=== PATIENT | female | born 1975 | race Caucasian/White ===

== ENCOUNTER 2021-02-04 12:43 | Emergency (ER) | payer MEDICAID, MEDICARE ==
--- NOTE | 2021-02-04 14:03 | EDM.PDOC ---
ED HPI GENERAL MEDICAL PROBLEM - General Chief Complaint: ENT Problem Stated Complaint: [id number] COUGH AND TEMP CONGESTION Time Seen by Provider: 02/04/21 13:52 Source of Information: Reports: Patient, RN, RN Notes Reviewed, Other ([facility] home staff) History Limitations: Reports: Language Barrier (Nonverbal) - History of Present Illness INITIAL COMMENTS - FREE TEXT/NARRATIVE: Denita is a 45 y/o female with a history of mental retardation who presents to the ED via personal vehicle with [facility] home staff member for complaints of fever, cough, and decreased appetite. The [facility] staff member reports the patient had a fever of 103.5 this morning was appropriately reduced with Tylenol 1gm. Additionally, they have noted congestion and reduction in fluid intake since this morning. As the patient is nonverbal she does not attest to pain, however no painful response is noted upon palpation of the abdomen, chest, or extremities. - Related Data Allergies Allergy/AdvReac Type Severity Reaction Status Date / Time povidone-iodine Allergy Hives Verified 08/26/17 12:00 [From Betadine] soap [From Betadine] Allergy Hives Verified 08/26/17 12:00 Sulfa (Sulfonamide Allergy Hives Verified 08/26/17 12:00 Antibiotics) Home Meds: Home Meds Betamethasone Dipropionate [Diprosone 0.05% Crm] 1 applic TOP BID PRN 08/26/17 [History] Celecoxib 200 mg PO BID 08/26/17 [History] Cholecalciferol (Vitamin D3) [Vitamin D3] 2,000 unit PO DAILY 08/26/17 [History] Docusate Sodium [DOK] 200 mg PO BID 08/26/17 [History] Erythromycin Base/Ethanol [Erythromycin 2% Gel] 1 applic TOP BEDTIME PRN 08/26/17 [History] Famotidine 20 mg PO BID 08/26/17 [History] Hydrocortisone [Proctosol-HC] 1 applic TOP ASDIRECTED PRN 08/26/17 [History] Vitamin E 400 unit PO DAILY 08/26/17 [History] cefUROXime axetiL [Cefuroxime] 250 mg PO DAILY 08/26/17 [History] lamoTRIgine 200 mg PO BID 08/26/17 [History] tiZANidine [Zanaflex] 1 mg PO BEDTIME 08/26/17 [History] tiZANidine [Zanaflex] 1 mg PO Q6H PRN 08/26/17 [History] Past Medical History HEENT History: Reports: Hard of Hearing, Other (See Below) Other HEENT History: tympanoplasty [place] ears, canaloplasty right ear Cardiovascular History: Reports: None Respiratory History: Reports: None Gastrointestinal History: Reports: Celiac Disease, Chronic Constipation, Other (See Below) Other Gastrointestinal History: lactose intolerance Genitourinary History: Reports: None PSYCHOLOGY INSTRUCTOR History: Reports: None Musculoskeletal History: Reports: None Neurological History: Reports: Cerebral Palsy Psychiatric History: Reports: Developmental Delay, Other (See Below) Other Psychiatric History: profound intellectual disability Endocrine/Metabolic History: Reports: None Hematologic History: Reports: None Immunologic History: Reports: Other (See Below) 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, increased immunoglobulin M Oncologic (Cancer) History: Reports: None Dermatologic History: Reports: None - Infectious Disease History Infectious Disease History: Reports: None - Past Surgical History Head Surgeries/Procedures: Reports: None Social & Family History - Family History Family Medical History: Unobtainable - Tobacco Use Tobacco Use Status *Q: Never Tobacco User Second Hand Smoke Exposure: No - Caffeine Use Caffeine Use: Reports: None - Recreational Drug Use Recreational Drug Use: No ED ROS ENT - Review of Systems Review Of Systems: Comprehensive ROS is negative, except as noted in HPI. ED EXAM, ENT - Physical Exam Exam: See Below Exam Limited By: Language Barrier (Patient nonverbal due to cognitive delays) General Appearance: No Apparent Distress, Lethargic, Other (Ill-appearing ) Eye Exam: Bilateral Eye: Normal Inspection, PERRL (2mm) Ears: Normal External Exam, Normal Canal, Normal TMs. No: Canal Swelling, TM Bulging, TM Dullness, TM Erythema, TM Blood, TM Fluid, TM Perforation Nose: Normal Inspection, Normal Mucousa, No Blood Mouth/Throat: Dry Mucous Membrane. No: Lip Ulcers, Oral Ulcers, Throat Swelling, Tonsillar Erythema, Tonsillar Exudates, Tonsillar Swelling Head: Atraumatic, Normocephalic Neck: Normal Inspection, Supple, Full Range of Motion. No: Lymphadenopathy (L), Lymphadenopathy (R) Respiratory/Chest: No Respiratory Distress, No Accessory Muscle Use, Rales (To right lower lungs). No: Crackles, Rhonchi, Wheezing, Stridor, Retractions Cardiovascular: Normal Peripheral Pulses, Regular Rate, Rhythm, No Edema, No Gallop, No JVD, No Murmur, No Rub GI/Abdominal: Soft, No Distention, Abnormal Bowel Sounds (Hyperactive bowel sounds). No: No Abnormal Bruit, No Mass, Pelvis Stable, Guarding, Rigid (Female) Exam: Deferred Rectal (Female) Exam: Deferred Back: Normal Inspection, Full Range of Motion Extremities: Normal Inspection, Normal Range of Motion, Non-Tender, No Pedal Edema, Normal Capillary Refill Neurological: Alert, Other ([place] due to baseline cognitive delay) Skin: Warm, Dry, No Rash, Erythema (To bilateral cheeks) Course - Vital Signs Last Recorded V/S: Last Vital Signs Temp 98.1 F 02/04/21 12:57 Pulse 88 02/04/21 12:57 Resp 22 H 02/04/21 12:57 BP 86/54 L 02/04/21 12:57 Pulse Ox 96 02/04/21 12:57 - Orders/Labs/Meds Meds: Medications Discontinued Medications Generic Name Dose Route Start Last Admin Trade Name Joshua PRN Reason Stop Dose Admin Amoxicillin 1,000 mg 02/04/21 15:26 02/04/21 15:37 Amoxicillin 500 Mg Cap PO 02/04/21 15:27 1,000 mg ONETIME ONE Administration Azithromycin 500 mg 02/04/21 15:25 02/04/21 15:35 Azithromycin 250 Mg Tab PO 02/04/21 15:26 500 mg ONETIME ONE Administration - Radiology Interpretation Free Text/Narrative:: [facility] Final Radiology Report Call: [phone] assistance Online chat: [email or web address] Name: DENITA LION Age: 45Years F Date: 02/04/2021 SSN: -- : [id number] Study: CR CHEST 2V Requesting Physician: Mitzi Aparicio Images: 2 Addl Studies: Provided Clinical History: Cough; Fever 103; Decreased breath sounds bases Contrast: Contrast Medium: Contrast Amount: Contrast Method: CONFIDENTIALITY STATEMENT This report is intended only for use by the referring physician, and only in accordance with law. If you received this in error, call [phone]. Page 1 of 1 PROCEDURE INFORMATION: Exam: XR Chest Exam date and time: 02/04/2021 2:12 PM Age: 45 years old Clinical indication: Cough; Additional info: Cough; Fever 103; Decreased breath sounds bases TECHNIQUE: Imaging protocol: XR of the chest. Views: 2 views. COMPARISON: No relevant prior studies available. FINDINGS: Lungs: Right right lung patchy interstitial and airspace infiltrates predominate within the right upper and lower lobes. Mild coarsening of the left interstitial markings. Interstitial findings accentuated by hypoventilation. Pleural spaces: Unremarkable. No pleural effusion. No pneumothorax. Heart/Mediastinum: Unremarkable. No cardiomegaly. Bones/joints: Unremarkable. IMPRESSION: Right patchy interstitial airspace infiltrates compatible with pneumonitis. Thank you for allowing us to participate in the care of your patient. Dictated and Authenticated by: Radhika Yates MD 02/04/2021 2:46 PM Central Time ([place] & [place]) - Re-Assessments/Exams Free Text/Narrative Re-Assessment/Exam: 02/04/21 Will obtain CXR Findings of examination and imaging reviewed with patient's caregiver. Will treat right lobe pneumonia with azithromycin and amoxicillin. Discussed supportive cares for pneumonia with certified caregiver. Red flag signs and symptoms which would warrant reevaluation reviewed. Patient's certified caregiver verbalized understanding and agreement with the plan of care. Departure - Departure Time of Disposition: 15:22 Disposition: DC/Tfer to Director Internal Audit [facility] 64 Condition: Fair Clinical Impression: CAP (community acquired pneumonia) Qualifiers: Laterality: right Lung location: unspecified part of lung Qualified Code(s): J18.9 - Pneumonia, unspecified organism - Discharge Information *PRESCRIPTION DRUG MONITORING PROGRAM REVIEWED*: Not Applicable *COPY OF PRESCRIPTION DRUG MONITORING REPORT IN PATIENT THANIA: Not Applicable Referrals: Rhonda Chacko MD [Primary Care Provider] - Forms: ED Department Discharge Additional Instructions: Rx: amoxicillin Rx: azithromycin 1.) Take all of your antibiotics until gone. 2.) Increase your water intake. 3.) Follow up with primary care provider, or return to the emergency department, with persistent symptoms past three days, or worsening of symptoms despite medication. Sepsis Event Note (ED) - Evaluation Sepsis Screening Result: No Definite Risk
--- NOTE | 2021-02-04 14:47 | CR ---
PROCEDURE INFORMATION: Exam: XR Chest Exam date and time: 02/04/2021 2:12 PM Age: 45 years old Clinical indication: Cough; Additional info: Cough; Fever 103; Decreased breath sounds bases TECHNIQUE: Imaging protocol: XR of the chest. Views: 2 views. COMPARISON: No relevant prior studies available. FINDINGS: Lungs: Right right lung patchy interstitial and airspace infiltrates predominate within the right upper and lower lobes. Mild coarsening of the left interstitial markings. Interstitial findings accentuated by hypoventilation. Pleural spaces: Unremarkable. No pleural effusion. No pneumothorax. Heart/Mediastinum: Unremarkable. No cardiomegaly. Bones/joints: Unremarkable. IMPRESSION: Right patchy interstitial airspace infiltrates compatible with pneumonitis.
[2021-02-04] MEDS ORDERED: Azithromycin 250 MG Tab PO ONE (15:25)
[2021-02-04] MEDS ORDERED: Amoxicillin 500 MG Cap PO ONE (15:26)
== END 2021-02-04 15:45 ==
LOC: DL.ED 12:43
DX: J18.9 Pneumonia, unspecified organism (principal); Z88.2 Allergy status to sulfonamides; Z91.048 Other nonmedicinal substance allergy status; Z88.8 Allergy status to other drugs, medicaments and biological substances
CPT/HCPCS: 71046; 99284-25; A9270-GY

== ENCOUNTER 2021-03-01 17:27 | Emergency (ER) | payer MEDICARE, MEDICAID ==
[2021-03-01] MEDS ORDERED: Magnesium Citrate Solution 296 ML Bottle PO ONE (17:28)
--- NOTE | 2021-03-01 18:51 | EDM.PDOC ---
<Mitzi Aparicio - Last Filed: 03/01/21 18:43> ED HPI GENERAL MEDICAL PROBLEM - General Chief Complaint: Abdominal Pain Stated Complaint: STOMACH BLOATING, AND HARD AND POSSIBLE PAIN. Time Seen by Provider: 03/01/21 18:43 Source of Information: Reports: Patient, Provider ([facility] ), RN, RN Notes Reviewed History Limitations: Reports: Other (Cognitive delays) - Related Data Allergies Allergy/AdvReac Type Severity Reaction Status Date / Time povidone-iodine Allergy Hives Verified 08/26/17 12:00 [From Betadine] soap [From Betadine] Allergy Hives Verified 08/26/17 12:00 Sulfa (Sulfonamide Allergy Hives Verified 08/26/17 12:00 Antibiotics) Home Meds: Home Meds Betamethasone Dipropionate [Diprosone 0.05% Crm] 1 applic TOP BID PRN 08/26/17 [History] Celecoxib 200 mg PO BID 08/26/17 [History] Cholecalciferol (Vitamin D3) [Vitamin D3] 2,000 unit PO DAILY 08/26/17 [History] Docusate Sodium [DOK] 200 mg PO BID 08/26/17 [History] Erythromycin Base/Ethanol [Erythromycin 2% Gel] 1 applic TOP BEDTIME PRN 08/26/17 [History] Famotidine 20 mg PO BID 08/26/17 [History] Hydrocortisone [Proctosol-HC] 1 applic TOP ASDIRECTED PRN 08/26/17 [History] Vitamin E 400 unit PO DAILY 08/26/17 [History] cefUROXime axetiL [Cefuroxime] 250 mg PO DAILY 08/26/17 [History] lamoTRIgine 200 mg PO BID 08/26/17 [History] tiZANidine [Zanaflex] 1 mg PO BEDTIME 08/26/17 [History] tiZANidine [Zanaflex] 1 mg PO Q6H PRN 08/26/17 [History] Past Medical History HEENT History: Reports: Hard of Hearing, Other (See Below) Other HEENT History: tympanoplasty [place] ears, canaloplasty right ear Cardiovascular History: Reports: None Respiratory History: Reports: None Gastrointestinal History: Reports: Celiac Disease, Chronic Constipation, Other (See Below) Other Gastrointestinal History: lactose intolerance Genitourinary History: Reports: None RN SOCIAL SERVICES History: Reports: None Musculoskeletal History: Reports: None Neurological History: Reports: Cerebral Palsy Psychiatric History: Reports: Developmental Delay, Other (See Below) Other Psychiatric History: profound intellectual disability Endocrine/Metabolic History: Reports: None Hematologic History: Reports: None Immunologic History: Reports: Other (See Below) 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, increased immunoglobulin M Oncologic (Cancer) History: Reports: None Dermatologic History: Reports: None - Infectious Disease History Infectious Disease History: Reports: None - Past Surgical History Head Surgeries/Procedures: Reports: None Social & Family History - Family History Family Medical History: Unobtainable - Caffeine Use Caffeine Use: Reports: None Departure - Departure Disposition: Home, Self-Care 01 Clinical Impression: Constipation by delayed colonic transit - Discharge Information Instructions: Constipation, Adult, [id number] Referrals: PCP,None [Primary Care Provider] - Forms: ED Department Discharge Additional Instructions: increase fluids next 24 hours light diet monitor for fever, if noted and increased pain with distension or vomiting follow up magnesium citrate 1/2 bottle tonight and remainder in am Sepsis Event Note (ED) - Evaluation Sepsis Screening Result: No Definite Risk <Beatriz Cavanaugh - Last Filed: 03/02/21 05:40> ED HPI GENERAL MEDICAL PROBLEM - History of Present Illness INITIAL COMMENTS - FREE TEXT/NARRATIVE: ED with [facility] staff. report patient abdomen appearing distended and is more vocal today. No vomiting, No fever or chills Appetite fair. Taking fluids. No apparent pain. BM twice yesterday, large, none today. Non verbal [facility] resident. Hx constipation . No prior abdominal surgeries. ED ROS GENERAL - Review of Systems Review Of Systems: See Below Constitutional: Reports: No Symptoms HEENT: Reports: No Symptoms, Glasses Respiratory: Reports: No Symptoms Cardiovascular: Reports: No Symptoms GI/Abdominal: Denies: Abdominal Pain Skin: Reports: No Symptoms ED EXAM, GI/ABD - Physical Exam Exam: See Below Exam Limited By: No Limitations General Appearance: Alert, No Apparent Distress Ears: Normal External Exam, Hearing Grossly Normal Nose: Normal Inspection Throat/Mouth: Other (dentation poor non verbal) Head: Atraumatic, Normocephalic Neck: Normal Inspection Respiratory/Chest: No Respiratory Distress, Lungs Clear Cardiovascular: Normal Peripheral Pulses, Regular Rate, Rhythm GI/Abdominal Exam: Soft, Distended, Abnormal Bowel Sounds (hypoactive). No: No Distention, Guarding, Rigid, Rebound, Tender, Mass Extremities: Normal Inspection, Normal Range of Motion Neurological: Alert Skin Exam: Warm, Dry, Intact Course - Vital Signs Last Recorded V/S: Last Vital Signs Temp 97.5 F 03/01/21 18:30 Pulse 74 03/01/21 18:30 Resp 16 03/01/21 18:30 BP 103/63 03/01/21 18:30 Pulse Ox 99 03/01/21 18:30 - Orders/Labs/Meds Labs: Laboratory Tests 03/01/21 03/01/21 03/01/21 Range/Units 09:28 09:28 09:28 WBC 6.2 (5.0-10.0) 10^3/uL RBC 4.36 (4.2-5.4) 10^6/uL Hgb 12.3 (12.0-16.0) g/dL Hct 38.4 (37.0-47.0) % MCV 88.1 (80-100) fL MCH 28.2 (27.0-34.0) pg MCHC 32.0 L (33.0-35.0) g/dL Plt Count 275 (150-450) 10^3/uL Neut % (Auto) 61.7 (42.2-75.2) % Lymph % (Auto) 28.4 (20.5-50.1) % [place] % (Auto) 8.1 H (2-8) % Eos % (Auto) 1.8 (1.0-3.0) % Baso % (Auto) 0.0 (0.0-1.0) % Sodium 137 (136-145) mmol/L Potassium 3.8 (3.5-5.1) mmol/L Chloride 99 (98-107) mmol/L Carbon Dioxide 30 (21-32) mmol/L Anion Gap 11.8 (7-13) mEq/L BUN 16 (7-18) mg/dL Creatinine 0.72 (0.55-1.02) mg/dL Est Cr Clr Drug Dosing TNP Estimated GFR (MDRD) > 60 BUN/Creatinine Ratio 22.2 (No establ ref range) Glucose 96 (70-99) mg/dL Lactic Acid 1.2 (0.4-2.0) mmol/L Calcium 9.0 (8.5-10.1) mg/dL Total Bilirubin 0.1 L (0.2-1.0) mg/dL AST 17 (15-37) U/L ALT 30 (14-59) U/L Alkaline Phosphatase 99 (46-116) U/L Total Protein 7.5 (6.4-8.2) g/dL Albumin 3.4 (3.4-5.0) g/dL Globulin 4.1 Albumin/Globulin Ratio 0.8 Amylase 82 (25-115) U/L Lipase 92 (73-393) U/L Urine Color (YELLOW) Urine Appearance (CLEAR) Urine pH (5.0-9.0) Ur Specific [place] (1.005-1.030) Urine Protein (NEGATIVE) Urine Glucose (UA) (NEGATIVE) Urine Ketones (NEGATIVE) Urine Occult Blood (NEGATIVE) Urine Nitrite (NEGATIVE) Urine Bilirubin (NEGATIVE) Urine Urobilinogen (0.2-1.0) mg/dL Ur Leukocyte Esterase (NEGATIVE) 03/01/21 Range/Units 19:13 WBC (5.0-10.0) 10^3/uL RBC (4.2-5.4) 10^6/uL Hgb (12.0-16.0) g/dL Hct (37.0-47.0) % MCV (80-100) fL MCH (27.0-34.0) pg MCHC (33.0-35.0) g/dL Plt Count (150-450) 10^3/uL Neut % (Auto) (42.2-75.2) % Lymph % (Auto) (20.5-50.1) % [place] % (Auto) (2-8) % Eos % (Auto) (1.0-3.0) % Baso % (Auto) (0.0-1.0) % Sodium (136-145) mmol/L Potassium (3.5-5.1) mmol/L Chloride (98-107) mmol/L Carbon Dioxide (21-32) mmol/L Anion Gap (7-13) mEq/L BUN (7-18) mg/dL Creatinine (0.55-1.02) mg/dL Est Cr Clr Drug Dosing Estimated GFR (MDRD) BUN/Creatinine Ratio (No establ ref range) Glucose (70-99) mg/dL Lactic Acid (0.4-2.0) mmol/L Calcium (8.5-10.1) mg/dL Total Bilirubin (0.2-1.0) mg/dL AST (15-37) U/L ALT (14-59) U/L Alkaline Phosphatase (46-116) U/L Total Protein (6.4-8.2) g/dL Albumin (3.4-5.0) g/dL Globulin Albumin/Globulin Ratio Amylase (25-115) U/L Lipase (73-393) U/L Urine Color Yellow (YELLOW) Urine Appearance Clear (CLEAR) Urine pH 7.0 (5.0-9.0) Ur Specific [place] 1.010 (1.005-1.030) Urine Protein Negative (NEGATIVE) Urine Glucose (UA) Negative (NEGATIVE) Urine Ketones Negative (NEGATIVE) Urine Occult Blood Negative (NEGATIVE) Urine Nitrite Negative (NEGATIVE) Urine Bilirubin Negative (NEGATIVE) Urine Urobilinogen 0.2 (0.2-1.0) mg/dL Ur Leukocyte Esterase Negative (NEGATIVE) Meds: Medications Discontinued Medications Generic Name Dose Route Start Last Admin Trade Name Freq PRN Reason Stop Dose Admin Magnesium Citrate Confirm 03/01/21 19:57 Magnesium Citrate Solution 296 Ml Bottle Administered 03/01/21 19:58 Dose 296 ml .ROUTE .STK-MED ONE Departure - Departure Time of Disposition: 20:20 Condition: Good - Discharge Information *PRESCRIPTION DRUG MONITORING PROGRAM REVIEWED*: No *COPY OF PRESCRIPTION DRUG MONITORING REPORT IN PATIENT THANIA: No Sepsis Event Note (ED) - Focused Exam Vital Signs: Vital Signs Temp Pulse Resp BP Pulse Ox 03/01/21 18:30 97.5 F 74 16 103/63 99
--- NOTE | 2021-03-01 19:18 | CR ---
PROCEDURE INFORMATION: Exam: XR Abdomen Exam date and time: 03/01/2021 6:40 PM Age: 45 years old Clinical indication: Constipation; Additional info: R/O constipation TECHNIQUE: Imaging protocol: XR of the abdomen. Views: Frontal supine view of the abdomen. 1 View. COMPARISON: CR Chest 2V 02/04/2021 2:12 PM FINDINGS: Gastrointestinal tract: Prominent fecal burden consistent with constipation. No evidence of obstruction. Bones/joints: Unremarkable. IMPRESSION: Radiographic findings suggest constipation.
[2021-03-01 19:55] LABS: ANION GAP 11.8 mEq/L (7-13); CHLORIDE,CL 99 mmol/L (98-107); SODIUM,NA 137 mmol/L (136-145)
[2021-03-01] MEDS ORDERED: Magnesium Citrate Solution 296 ML Bottle ONE (19:57)
== END 2021-03-01 20:20 | disposition home or self-care (01) ==
LOC: DL.ED 17:27
DX: K59.01 Slow transit constipation (principal); Z88.2 Allergy status to sulfonamides; Z91.048 Other nonmedicinal substance allergy status; Z88.8 Allergy status to other drugs, medicaments and biological substances
CPT/HCPCS: 36415; 74018; 80053; 81003; 82150; 83605; 83690; 85025; 99283; A9270

== ENCOUNTER 2021-09-09 10:31 | Emergency (ER) | payer MEDICARE, MEDICAID ==
[2021-09-09 11:23] LABS: ANION GAP 15.7 mEq/L (7-13); CHLORIDE,CL 101 mmol/L (98-107); SODIUM,NA 139 mmol/L (136-145)
[2021-09-09] MEDS ORDERED: Sodium Chloride 0.9% 1,000 ML IV ONE (11:45)
[2021-09-09] MEDS ORDERED: cefTRIAXone 1 GM in Sodium Chloride 0.9% 50 ML IV ONE (12:05)
[2021-09-09] MEDS ORDERED: Azithromycin 500 MG in Sodium Chloride 0.9% 250 ML IV ONE (12:05)
== END 2021-09-09 14:16 | disposition home or self-care (01) ==
LOC: DL.ED 10:31
DX: E86.0 Dehydration (principal); J15.9 Unspecified bacterial pneumonia; Z88.8 Allergy status to other drugs, medicaments and biological substances; Z88.2 Allergy status to sulfonamides
CPT/HCPCS: 36415; 71045; 74018; 80053; 82947; 83605; 83735; 85025; 86140; 96365; 96367; 99284; 99285; J0456; J0696; J7030; J7050

== ENCOUNTER 2021-09-11 14:19 | Inpatient (IN) | payer MEDICARE, MEDICAID ==
[2021-09-11] MEDS ORDERED: Sodium Chloride 0.9% 10 ML Syringe FLUSH PRN (15:57)
[2021-09-11] MEDS ORDERED: Sodium Chloride 0.9% 1,000 ML IV ONE ×2 (15:58→20:19)
[2021-09-11] MEDS ORDERED: Ondansetron 4 MG/2 ML SDV IV ONE (15:58)
[2021-09-11] MEDS ORDERED: Piperacillin/Tazobactam 3.375 GM in Sodium Chloride 0.9% 100 ML IV ONE (16:40)
[2021-09-11 17:01] LABS: ANION GAP 14.2 mEq/L (7-13); CHLORIDE,CL 103 mmol/L (98-107); SODIUM,NA 139 mmol/L (136-145)
[2021-09-11 17:27] LABS: RESPIRATORY SYNCYTIAL VIR NAA NEGATIVE (NEGATIVE)
[2021-09-11 17:30] LABS: CORONAVIRUS COVID-19 NAA POSITIVE (NEGATIVE)
[2021-09-11] MEDS ORDERED: Acetaminophen/HYDROcodone 325-10 MG Tab ONE (18:03)
[2021-09-11] MEDS ORDERED: Albuterol/Ipratropium 3.0-0.5 MG/3 ML Neb Soln NEB PRN (20:20)
[2021-09-11] MEDS ORDERED: Docusate Sodium 100 MG Cap PO PRN (20:20)
[2021-09-11] MEDS ORDERED: Ondansetron 4 MG/2 ML SDV IVPUSH PRN (20:20)
[2021-09-11] MEDS ORDERED: lamoTRIgine 100 MG Tab PO ONE (20:31)
[2021-09-11] MEDS ORDERED: Acetaminophen 325 MG Tab PO PRN (21:34)
[2021-09-11] MEDS: Sodium Chloride 0.9% 1,000 ML IV SCH (21:55)
[2021-09-11 22:04] LABS: O2 DELIVERY DEVICE NON REBR MASK
[2021-09-11 22:05] LABS: PCO2 VENOUS 39 mmHg (41-51); PH,VENOUS 7.39 (7.31-7.41)
[2021-09-11 22:06] LABS: BASE EXCESS VENOUS -1 mmol/l ((-2)-(+3)); BICARBONATE,VENOUS 24 mmol/l (19-25); O2 SATURATION VENOUS 50 % (60-80); PO2 VENOUS 27 mmHg (35-42)
[2021-09-11] MEDS: Piperacillin/Tazobactam 4.5 GM in Sodium Chloride 0.9% 100 ML IV SCH (22:13)
[2021-09-12] MEDS ORDERED: Dexamethasone 4 MG/ML SDV TOP ONE (00:19)
[2021-09-12] MEDS ORDERED: Dexamethasone 4 MG/ML SDV IVPUSH ONE (00:30)
[2021-09-12] MEDS: Piperacillin/Tazobactam 4.5 GM in Sodium Chloride 0.9% 100 ML IV SCH ×4 (04:11→22:45)
[2021-09-12] MEDS ORDERED: Iopamidol 755 Mg/ML 100 ML Bottle IVPUSH ONE (07:32)
[2021-09-12 09:10] LABS: ANION GAP 14.6 mEq/L (7-13); CHLORIDE,CL 110 mmol/L (98-107)
[2021-09-12 09:11] LABS: SODIUM,NA 142 mmol/L (136-145)
[2021-09-12] MEDS ORDERED: LORazepam 2 MG/ML SDV IVPUSH ONE ×2 (09:11→09:59)
[2021-09-12] MEDS: Dexamethasone 4 MG/ML SDV IVPUSH SCH (09:18)
[2021-09-12] MEDS: Sodium Chloride 0.9% 1,000 ML IV SCH (09:25)
[2021-09-12] MEDS: Enoxaparin 40 MG/0.4 ML Syringe SUBCUT SCH (09:37)
[2021-09-12] MEDS ORDERED: REMDESIVIR 200 MG in Sodium Chloride 0.9% 250 ML IV ONE (10:51)
[2021-09-12 11:52] LABS: ALLEN TEST Y; O2 DELIVERY DEVICE NON REBR MASK
[2021-09-12 11:54] LABS: PCO2 ARTERIAL 44 mmHg (35-45)
[2021-09-12 11:55] LABS: O2 SATURATION ARTERIAL 77 % (95-100); PO2 ARTERIAL 45 mmHg (70-100)
[2021-09-12 11:56] LABS: BASE EXCESS ARTERIAL -3 mmol/L ((-2)-(+3))
[2021-09-12] MEDS: Acetaminophen 650 MG Supp RECTAL PRN ×2 (14:33→20:13)
[2021-09-13] MEDS: Piperacillin/Tazobactam 4.5 GM in Sodium Chloride 0.9% 100 ML IV SCH ×3 (03:48→16:10)
[2021-09-13] MEDS ORDERED: Morphine 2 MG/ML SYRINGE IVPUSH PRN (04:04)
[2021-09-13 06:00] LABS: CHLORIDE,CL 108 mmol/L (98-107); SODIUM,NA 142 mmol/L (136-145)
[2021-09-13] MEDS: Sodium Chloride 0.9% 1,000 ML IV SCH (09:34)
[2021-09-13] MEDS: Dexamethasone 4 MG/ML SDV IVPUSH SCH (09:37)
[2021-09-13] MEDS: Enoxaparin 40 MG/0.4 ML Syringe SUBCUT SCH (09:40)
[2021-09-13] MEDS ORDERED: REMDESIVIR 100 MG in Sodium Chloride 0.9% 100 ML IV SCH (11:00)
[2021-09-13] MEDS ORDERED: Lactated Ringers 500 ML IV ONE (13:01)
[2021-09-13] MEDS ORDERED: lamoTRIgine 100 MG Tab PO SCH (21:00)
[2021-09-13] MEDS ORDERED: Enoxaparin 40 MG/0.4 ML Syringe SUBCUT SCH (21:00)
== END 2021-09-13 16:40 | disposition expired | DRG 871 ==
LOC: DL.ED 14:19 → DL.MS 18:17
PROVIDERS: ADMIT Internal Medicine; ATTEND Internal Medicine
PROC: 8E0ZXY6 Isolation (ICD-10-PCS; principal; 2021-09-12)
PROC: 3E0333Z Introduction of Anti-inflammatory into Peripheral Vein, Percutaneous Approach (ICD-10-PCS; 2021-09-12)
PROC: XW033E5 Introduction of Remdesivir Anti-infective into Peripheral Vein, Percutaneous Approach, New Technology Group 5 (ICD-10-PCS; 2021-09-12)
DX: A41.9 Sepsis, unspecified organism (principal); J69.0 Pneumonitis due to inhalation of food and vomit; U07.1 COVID-19; J12.82 Pneumonia due to coronavirus disease 2019; J96.01 Acute respiratory failure with hypoxia; R65.21 Severe sepsis with septic shock; J15.9 Unspecified bacterial pneumonia; D80.2 Selective deficiency of immunoglobulin A [IgA]; D80.3 Selective deficiency of immunoglobulin G [IgG] subclasses; Z88.8 Allergy status to other drugs, medicaments and biological substances; D80.4 Selective deficiency of immunoglobulin M [IgM]; Z66 Do not resuscitate; G80.9 Cerebral palsy, unspecified; K59.09 Other constipation; H90.5 Unspecified sensorineural hearing loss; K90.0 Celiac disease; F81.9 Developmental disorder of scholastic skills, unspecified; Z88.2 Allergy status to sulfonamides; Z91.041 Radiographic dye allergy status; Z79.899 Other long term (current) drug therapy; Z51.5 Encounter for palliative care; Z91.048 Other nonmedicinal substance allergy status
CPT/HCPCS: 0241U; 36415; 36600; 51702; 71045; 74018; 80048; 80053; 80202; 82150; 82803; 83605; 83690; 84484; 85025; 85379; 86140; 87040; 93005; 94640; 94660; 96365; 96367; 96375; 99222; 99232; 99238; 99285; 99285-25; A9270-GY; J1100; J1650; J2060; J2270; J2405; J2543; J3370; J7030; J7050; J7620-GY